=== PATIENT | male | born 1970 | race Caucasian/White ===

== ENCOUNTER 2016-07-04 08:08 | Emergency (ER) | payer BC, OTHER ==
[2016-07-04 08:42] VITALS: BP 133/89
[2016-07-04] MEDS ORDERED: Sodium Chloride 0.9% 10 ML Syringe FLUSH PRN (08:52)
--- NOTE | 2016-07-04 09:58 | EDM.PDOC ---
ED HPI GI/ABDOMINAL - General Chief Complaint: Abdominal Pain Stated Complaint: DIVERTICULITUS PER PATIENT Time Seen by Provider: 07/04/16 08:43 Source of Information: Reports: Patient, RN notes reviewed - History of Present Illness INITIAL COMMENTS - FREE TEXT/NARRATIVE: 46 year old male with onset of abd pain days ago, pain is worsening, primarily LLQ. Has not had any fever, chills, nausea, vomiting or diarrhea. Hx of diverticulitis, this seems very similar. Pain does not radiate to back, no blood. - Related Data Allergies/ADRs: Allergies Allergy/AdvReac Type Severity Reaction Status Date / Time thiopental [Thiopental] Allergy Unknown Nausea Verified 07/04/16 08:42 morphine Allergy unknown Verified 07/04/16 08:42 Home Meds: Home Meds Methylphenidate [Ritalin SR] 40 mg PO DAILY 10/29/13 [History] buPROPion [Wellbutrin XL] 300 mg PO DAILY 10/29/13 [History] Ciprofloxacin HCl [Cipro] 500 mg PO Q12HR #20 tablet 07/04/16 [Rx] atorvaSTATin [Lipitor] 20 mg PO DAILY 07/04/16 [History] metroNIDAZOLE [Flagyl] 500 mg PO Q8H #20 tablet 07/04/16 [Rx] Past Medical History Cardiovascular History: Reports: High cholesterol Gastrointestinal History: Reports: Diverticulosis Psychiatric History: Reports: ADHD, Anxiety, Depression - Past Surgical History HEENT Surgical History: Reports: Oral surgery GI Surgical History: Reports: Cholecystectomy Musculoskeletal Surgical History: Reports: Shoulder surgery Social & Family History - Tobacco Use Smoking Status *Q: Never Smoker - Caffeine Use Caffeine Use: Reports: Coffee - Alcohol Use Days Per Week of Alcohol Use: 3 Number of Drinks Per Day: 2 Total Drinks Per Week: 6 - Recreational Drug Use Recreational Drug Use: No ED ROS GENERAL - Review of Systems Review Of Systems: See Below Constitutional: Denies: fever, chills, diaphoresis HEENT: Reports: No symptoms Respiratory: Denies: Shortness of Breath, Pleuritic Chest Pain Cardiovascular: Denies: Chest pain GI/Abdominal: Reports: Abdominal pain. Denies: Diarrhea, Hematochezia, Melena, Nausea, Vomiting : Reports: no symptoms Musculoskeletal: Reports: no symptoms Skin: Reports: no symptoms Neurological: Reports: No Symptoms ED EXAM, GI/ABD - Physical Exam Exam: See Below General Appearance: alert, no apparent distress Eyes: bilateral: normal appearance Throat/Mouth: Normal inspection, Normal oropharynx Neck: supple, full range of motion Respiratory/Chest: no respiratory distress, lungs clear, normal breath sounds Cardiovascular: regular rate, rhythm GI/Abdominal: tenderness (LLQ, abd otherwise soft and nontender. ) Back Exam: No: CVA tenderness (L), CVA tenderness (R) Extremities: normal inspection, normal range of motion Neurological: alert, oriented, no motor/sensory deficits Skin Exam: Warm, Dry, Normal color Course - Vital Signs Last Recorded V/S: Last Vital Signs Temp 98.1 F 07/04/16 08:40 Pulse 66 07/04/16 08:40 Resp 16 07/04/16 08:40 BP 133/89 07/04/16 08:40 Pulse Ox 100 07/04/16 08:40 - Orders/Labs/Meds Orders: Active Orders 24 hr Category Date Time Status Peripheral IV Care [RC] . DIRECTED Care 07/04/16 08:52 Active Peripheral IV Insertion Adult [OM.PC] Stat Oth 07/04/16 08:52 Ordered Labs: Laboratory Tests 07/04/16 07/04/16 07/04/16 Range/Units 08:50 08:50 08:50 WBC 10.55 H (4.23-9.07) K/mm3 RBC 4.77 (4.63-6.08) M/mm3 Hgb 14.4 (13.7-17.5) gm/L Hct 42.9 (40.1-51.0) % MCV 89.9 (79.0-92.2) fl MCH 30.2 (25.7-32.2) pg MCHC 33.6 (32.2-35.5) g/dl RDW Std Deviation 44.0 H (35.1-43.9) fL Plt Count 250 (163-337) K/mm3 MPV 9.7 (9.4-12.3) fl Neut % (Auto) 63.1 (34.0-67.9) % Lymph % (Auto) 23.8 (21.8-53.1) % [place] % (Auto) 10.8 (5.3-12.2) % Eos % (Auto) 1.7 (0.8-7.0) Baso % (Auto) 0.3 (0.1-1.2) % Neut # (Auto) 6.66 H (1.78-5.38) K/mm3 Lymph # (Auto) 2.51 (1.32-3.57) K/mm3 [place] # (Auto) 1.14 H (0.30-0.82) K/mm3 Eos # (Auto) 0.18 (0.04-0.54) K/mm3 Baso # (Auto) 0.03 (0.01-0.08) K/mm3 Sodium 140 (136-145) mEq/L Potassium 3.8 (3.5-5.1) mEq/L Chloride 102 (98-107) mEq/L Carbon Dioxide 29 (21-32) mEq/L Anion Gap 12.8 (5-15) BUN 12 (7-18) mg/dL Creatinine 1.3 (0.7-1.3) mg/dL Est Cr Clr Drug Dosing 71.75 mL/min Estimated GFR (MDRD) 59 (>60) mL/min BUN/Creatinine Ratio 9.2 L (14-18) Glucose 113 H (74-106) mg/dL Calcium 8.9 (8.5-10.1) mg/dL Total Bilirubin 0.4 (0.2-1.0) mg/dL AST 21 (15-37) U/L ALT 46 (16-63) U/L Alkaline Phosphatase 66 (46-116) U/L C-Reactive Protein 0.6 (<1.0) mg/dL Total Protein 7.6 (6.4-8.2) g/dl Albumin 4.0 (3.4-5.0) g/dl Globulin 3.6 gm/dL Albumin/Globulin Ratio 1.1 (1-2) Meds: Medications Discontinued Medications Generic Name Dose Route Start Last Admin Trade Name Freq PRN Reason Stop Dose Admin Metronidazole 500 mg 07/04/16 09:59 07/04/16 10:11 Flagyl PO 07/04/16 10:00 500 mg ONETIME ONE Administration Sodium Chloride 10 ml 07/04/16 08:52 07/04/16 09:22 Saline Flush FLUSH 10 ml ASDIRECTED PRN Administration Keep Vein Open - Re-Assessments/Exams Free Text/Narrative Re-Assessment/Exam: 07/04/16 10:23 WBC mildly elevated, CRP 0.6, will start on cipro and flagyl. Departure - Departure Time of Disposition: 09:57 Disposition: Home, Self-Care 01 Condition: fair Clinical Impression: Diverticulitis Qualifiers: Diverticulitis site: large intestine Diverticulitis bleeding: without bleeding Diverticulitis complication: without perforation or abscess Qualified Code(s): K57.32 - Diverticulitis of large intestine without perforation or abscess without bleeding Prescriptions: Ciprofloxacin HCl [Cipro] 500 mg PO Q12HR #20 tablet metroNIDAZOLE [Flagyl] 500 mg PO Q8H #20 tablet Instructions: Diverticulitis Referrals: Hope Patel DO [Primary Care Provider] - Forms: ED Department Discharge Additional Instructions: clear liquids and bland diet as tolerated, cipro 500 mg twice daily for 10 days , flagyl 500 mg 3 times daily for 7 days, continue stool softener, drink plenty of water, follow up clinic if sx not resolving as expected, return to ED as needed. - My Orders Last 24 Hours: My Active Orders 07/04/16 08:52 Peripheral IV Care [RC] . DIRECTED Peripheral IV Insertion Adult [OM.PC] Stat - Assessment/Plan Last 24 Hours: My Active Orders 07/04/16 08:52 Peripheral IV Care [RC] . DIRECTED Peripheral IV Insertion Adult [OM.PC] Stat
[2016-07-04] MEDS ORDERED: metroNIDAZOLE 500 MG Tab PO ONE (09:59)
== END 2016-07-04 10:14 | disposition home or self-care (01) ==
LOC: JD.ED 08:08
DX: K57.32 Diverticulitis of large intestine without perforation or abscess without bleeding (principal); E78.00 Pure hypercholesterolemia, unspecified; F41.8 Other specified anxiety disorders; Z90.49 Acquired absence of other specified parts of digestive tract; Z98.890 Other specified postprocedural states; Z79.899 Other long term (current) drug therapy; Z88.5 Allergy status to narcotic agent; Z88.8 Allergy status to other drugs, medicaments and biological substances
CPT/HCPCS: 36415; 80053; 85025; 86140; 99284; A9270; J7050

== ENCOUNTER 2019-09-17 21:10 | Emergency (ER) | payer OTHER ==
[2019-09-17 21:54] VITALS: BP 133/82; PULSE 63
[2019-09-17] MEDS ORDERED: Sodium Chloride 0.9% 1,000 ML IV SCH (22:15)
--- NOTE | 2019-09-17 22:57 | EDM.PDOC ---
ED HPI GENERAL MEDICAL PROBLEM - General Chief Complaint: Abdominal Pain Stated Complaint: SIDE ABDOMINAL PAIN Time Seen by Provider: 09/17/19 22:56 - History of Present Illness INITIAL COMMENTS - FREE TEXT/NARRATIVE: 49-year-old male presents the emergency room with abdominal pain. This gentleman has a history of diverticulitis. And has had a couple of flares in the past. This episode is been going on over 24 hours now. And he is having worsening pain. The pain is purely on the left side mostly left lower quadrant. Patient has not noticed any blood in his stool he has no nausea or vomiting. Patient is not aware of any fevers or chills. The patient has had a colonoscopy in the past and recalls being told that his lesions are complicated. The patient is fairly certain this is diverticulitis. Left Abdomen Pain Score (Numeric/FACES): 7 - Related Data Allergies Allergy/AdvReac Type Severity Reaction Status Date / Time thiopental [Thiopental] Allergy Unknown Nausea Verified 09/17/19 21:24 morphine Allergy unknown Verified 09/17/19 21:24 Home Meds: Home Meds Methylphenidate [Ritalin SR] 40 mg PO DAILY 10/29/13 [History] buPROPion [Wellbutrin XL] 300 mg PO DAILY 10/29/13 [History] atorvaSTATin [Lipitor] 20 mg PO DAILY 07/04/16 [History] Acetaminophen/HYDROcodone [[place] 325-5 MG] 1 - 2 tab PO Q6H PRN #20 tablet 09/18/19 [Rx] Ciprofloxacin [Ciprofloxacin HCl] 500 mg PO Q12H #18 tab 09/18/19 [Rx] Ondansetron [Zofran ODT] 4 mg PO Q6H PRN #12 tab.dis 09/18/19 [Rx] metroNIDAZOLE [Flagyl] 500 mg PO Q8H #29 tab 09/18/19 [Rx] Past Medical History Cardiovascular History: Reports: High Cholesterol Gastrointestinal History: Reports: Diverticulosis Psychiatric History: Reports: ADHD, Anxiety, Depression - Past Surgical History HEENT Surgical History: Reports: Oral Surgery GI Surgical History: Reports: Cholecystectomy Musculoskeletal Surgical History: Reports: Shoulder Surgery Social & Family History - Tobacco Use Smoking Status *Q: Never Smoker Second Hand Smoke Exposure: No - Caffeine Use Caffeine Use: Reports: None - Recreational Drug Use Recreational Drug Use: No ED ROS GENERAL - Review of Systems Review Of Systems: See Below Constitutional: Reports: No Symptoms HEENT: Reports: No Symptoms Respiratory: Reports: No Symptoms Cardiovascular: Reports: No Symptoms GI/Abdominal: Reports: Abdominal Pain. Denies: Black Stool, Bloody Stool, Constipation, Diarrhea, Nausea, Vomiting ED EXAM, GI/ABD - Physical Exam Exam: See Below Exam Limited By: No Limitations General Appearance: Alert, No Apparent Distress Head: Atraumatic, Normocephalic Neck: Normal Inspection, Supple, Non-Tender, Full Range of Motion. No: Lymphadenopathy (L), Lymphadenopathy (R) Respiratory/Chest: No Respiratory Distress, Lungs Clear, Normal Breath Sounds Cardiovascular: Regular Rate, Rhythm, No Edema, No Murmur GI/Abdominal Exam: Normal Bowel Sounds, Soft, Other (She has significant left lower quadrant discomfort with palpation no rigidity rebound or guarding noted.) Back Exam: Normal Inspection. No: CVA Tenderness (L), CVA Tenderness (R) Neurological: Alert, Oriented, Normal Cognition Course - Vital Signs Last Recorded V/S: Last Vital Signs Temp 36.5 C 09/17/19 21:21 Pulse 63 09/17/19 21:21 Resp 18 09/17/19 21:21 BP 133/82 09/17/19 21:21 Pulse Ox 96 09/17/19 21:21 - Orders/Labs/Meds Orders: Active Orders 24 hr Category Date Time Status Abdomen Pelvis w Cont [CT] Stat Exams 09/17/19 22:19 Taken Sodium Chloride 0.9% [Normal Saline] 1,000 ml Med 09/17/19 22:15 Active IV ASDIRECTED Medication Orders Sodium Chloride (Normal Saline) 1,000 mls @ 150 mls/hr IV ASDIRECTED TANNER Last Admin: 09/18/19 00:03 Dose: 150 mls/hr Documented by: GABE Labs: Laboratory Tests 09/17/19 09/17/19 Range/Units 22:15 22:15 WBC 11.45 H (4.23-9.07) K/mm3 RBC 4.51 L (4.63-6.08) M/mm3 Hgb 13.5 L (13.7-17.5) gm/dl Hct 40.9 (40.1-51.0) % MCV 90.7 (79.0-92.2) fl MCH 29.9 (25.7-32.2) pg MCHC 33.0 (32.2-35.5) g/dl RDW Std Deviation 43.7 (35.1-43.9) fL Plt Count 219 (163-337) K/mm3 MPV 9.4 (9.4-12.3) fl Neut % (Auto) 64.0 (34.0-67.9) % Lymph % (Auto) 20.9 L (21.8-53.1) % [place] % (Auto) 12.9 H (5.3-12.2) % Eos % (Auto) 1.6 (0.8-7.0) Baso % (Auto) 0.3 (0.1-1.2) % Neut # (Auto) 7.33 H (1.78-5.38) K/mm3 Lymph # (Auto) 2.39 (1.32-3.57) K/mm3 [place] # (Auto) 1.48 H (0.30-0.82) K/mm3 Eos # (Auto) 0.18 (0.04-0.54) K/mm3 Baso # (Auto) 0.03 (0.01-0.08) K/mm3 Sodium 141 (136-145) mEq/L Potassium 3.9 (3.5-5.1) mEq/L Chloride 103 (98-107) mEq/L Carbon Dioxide 27 (21-32) mEq/L Anion Gap 14.9 (5-15) BUN 14 (7-18) mg/dL Creatinine 1.2 (0.7-1.3) mg/dL Est Cr Clr Drug Dosing 77.57 mL/min Estimated GFR (MDRD) > 60 (>60) mL/min BUN/Creatinine Ratio 11.7 L (14-18) Glucose 96 (74-106) mg/dL Calcium 9.4 (8.5-10.1) mg/dL Total Bilirubin 0.6 (0.2-1.0) mg/dL AST 29 (15-37) U/L ALT 61 (16-63) U/L Alkaline Phosphatase 74 (46-116) U/L C-Reactive Protein 0.5 (<1.0) mg/dL Total Protein 7.5 (6.4-8.2) g/dl Albumin 4.0 (3.4-5.0) g/dl Globulin 3.5 gm/dL Albumin/Globulin Ratio 1.1 (1-2) Meds: Medications Generic Name Dose Route Start Last Admin Trade Name Ricardo PRN Reason Stop Dose Admin Sodium Chloride 1,000 mls @ 150 mls/hr 09/17/19 22:15 09/18/19 00:03 Normal Saline IV 150 mls/hr ASDIRECTED TANNER Administration Discontinued Medications Generic Name Dose Route Start Last Admin Trade Name Ricardo PRN Reason Stop Dose Admin Hydrocodone Bitart/Acetaminophen 2 tab 09/18/19 02:36 [place] 325-5 Mg PO 09/18/19 02:37 ONETIME ONE Fentanyl 100 mcg 09/17/19 23:14 09/17/19 23:25 Sublimaze IVPUSH 09/17/19 23:15 100 mcg ONETIME ONE Administration Fentanyl 100 mcg 09/18/19 01:48 09/18/19 01:56 Sublimaze IVPUSH 09/18/19 01:49 100 mcg ONETIME ONE Administration Sodium Chloride 500 mls @ 999 mls/hr 09/17/19 23:07 09/17/19 23:25 Normal Saline IV 09/17/19 23:37 999 mls/hr .BOLUS ONE Administration Levofloxacin/Dextrose 750 mg/ 150 mls @ 100 mls/hr 09/18/19 02:35 09/18/19 02:42 Premix IV 09/18/19 04:04 100 mls/hr ONETIME ONE Administration Metronidazole 500 mg/ Premix 100 mls @ 100 mls/hr 09/18/19 02:35 09/18/19 02:42 IV 09/18/19 03:34 100 mls/hr ONETIME ONE Administration Ondansetron HCl 4 mg 09/17/19 23:38 09/17/19 23:00 Zofran IVPUSH 09/17/19 23:39 4 mg ONETIME ONE Administration - Re-Assessments/Exams Free Text/Narrative Re-Assessment/Exam: 09/18/19 02:39 CT is consistent with diverticulitis without mention of abscess. He recently received some more fentanyl and another 20 or 30 minutes will give him a couple hydrocodone. Patient has done okay with hydrocodone in the past however causes constipation for him did discuss this with the patient he will use a stool softener and MiraLAX as an outpatient the patient will receive a single dose of IV Levaquin and Flagyl prior to discharge Departure - Departure Time of Disposition: 03:15 Disposition: Home, Self-Care 01 Clinical Impression: Diverticulitis Qualifiers: Diverticulitis site: large intestine Diverticulitis bleeding: without bleeding Diverticulitis complication: without perforation or abscess Qualified Code(s): K57.32 - Diverticulitis of large intestine without perforation or abscess without bleeding - Discharge Information Prescriptions: Ciprofloxacin [Ciprofloxacin HCl] 500 mg PO Q12H #18 tab metroNIDAZOLE [Flagyl] 500 mg PO Q8H #29 tab Acetaminophen/HYDROcodone [[place] 325-5 MG] 1 - 2 tab PO Q6H PRN #20 tablet PRN Reason: Abdominal Pain Ondansetron [Zofran ODT] 4 mg PO Q6H PRN #12 tab.dis PRN Reason: Nausea/Vomiting Referrals: Meena Ellison MD [Primary Care Provider] - Forms: ED Department Discharge Additional Instructions: Return to the emergency room with any questions problems or worsening symptoms. Take the antibiotics as directed. You start the ciprofloxacin on September 18 and you will continue the metronidazole, or Flagyl today your next dose is due around noon. Follow-up with your regular physician at the end of this week for recheck. Take Colace 100 mg twice a day, this is an [id number] stool softener use MiraLAX as well. Sepsis Event Note (ED) - Evaluation Sepsis Screening Result: No Definite Risk - Focused Exam Vital Signs: Vital Signs Temp Pulse Resp BP Pulse Ox 09/17/19 21:21 36.5 C 63 18 133/82 96 - My Orders Last 24 Hours: My Active Orders 09/17/19 22:15 Sodium Chloride 0.9% [Normal Saline] 1,000 ml IV ASDIRECTED - Assessment/Plan Last 24 Hours: My Active Orders 09/17/19 22:15 Sodium Chloride 0.9% [Normal Saline] 1,000 ml IV ASDIRECTED
[2019-09-17] MEDS ORDERED: Sodium Chloride 0.9% 500 ML IV ONE (23:07)
[2019-09-17] MEDS ORDERED: fentaNYL 100 MCG/2 ML SDV IVPUSH ONE (23:14)
[2019-09-17] MEDS ORDERED: Ondansetron 4 MG/2 ML SDV IVPUSH ONE (23:38)
[2019-09-18] MEDS ORDERED: fentaNYL 100 MCG/2 ML SDV IVPUSH ONE (01:48)
[2019-09-18] MEDS ORDERED: metroNIDAZOLE/Normal Saline 500 MG in Premix Bag 1 BAG IV ONE (02:35)
[2019-09-18] MEDS ORDERED: Levofloxacin/Dextrose 5%-Water 750 MG in Premix Bag 1 BAG IV ONE (02:35)
[2019-09-18] MEDS ORDERED: Acetaminophen/HYDROcodone 325-5 MG Tab PO ONE (02:36)
--- NOTE | 2019-09-18 06:40 | CT ---
CT abdomen and pelvis Technique: Multiple axial sections were obtained from above the dome of the diaphragm inferiorly through the pubic symphysis. Intravenous and oral contrast was utilized. Delayed images were also obtained through the pelvis. Comparison: Prior CT abdomen and pelvis exam of 07/31/18. Findings: Inflammatory change and adjacent bowel wall thickening seen at the junction of the descending and sigmoid colon. This occurs in an area of diverticuli and findings are most likely due to diverticulitis. Appendix is seen and is normal in size. Visualized lung bases show mild atelectasis. Liver contains fatty infiltration without focal abnormality. Spleen appears normal. Adrenal glands show no nodule. Kidneys show symmetric contrast enhancement without hydronephrosis or mass. Surgical clips are noted from prior cholecystectomy. Pancreas shows no abnormality. Aorta shows no aneurysm. No retroperitoneal adenopathy or mesenteric abnormalities are seen. No pelvic mass or adenopathy is seen. Delayed images shows contrast within the distal ureters as well as bladder. Bone window settings were reviewed which shows disc space narrowing and vacuum phenomena at L5-S1. Lesser degenerative change scattered within other portions of the spine. No acute osseous finding is appreciated. Impression: 1. Findings compatible with diverticulitis as noted above. 2. No other acute finding is seen. Diagnostic code #3 This report was dictated in MDT I agree with preliminary report from [facility], finalized on 09/18/19, 2:57 AM Central Daylight Time
== END 2019-09-18 04:50 | disposition home or self-care (01) ==
LOC: JD.ED 21:10
DX: K57.32 Diverticulitis of large intestine without perforation or abscess without bleeding (principal); E78.00 Pure hypercholesterolemia, unspecified; F41.9 Anxiety disorder, unspecified; F32.9 Major depressive disorder, single episode, unspecified; Z88.5 Allergy status to narcotic agent; Z88.4 Allergy status to anesthetic agent; Z79.899 Other long term (current) drug therapy; F90.9 Attention-deficit hyperactivity disorder, unspecified type
CPT/HCPCS: 36415; 74177; 80053; 85025; 86140; 96365; 96368; 96375; 96376; 99284; A9270; J1956; J2405; J3010; J3490; J7030

== ENCOUNTER 2023-01-06 20:40 | Emergency (ER) | payer BC, OTHER ==
[2023-01-06] MEDS ORDERED: Sodium Chloride 0.9% 10 ML Syringe FLUSH PRN (20:57)
[2023-01-06 21:34] VITALS: PULSE 65
[2023-01-06 21:35] LABS: BASOPHILS ABSOLUTE AUTO 0.1 K/mm3 (0.0-0.2); BASOPHILS PERCENT AUTO 0.7 % (0.0-1.0); EOSINOPHILS ABSOLUTE AUTO 0.2 K/mm3 (0.0-0.4); EOSINOPHILS PERCENT AUTO 2.5 % (0.0-6.0); HEMATOCRIT 46.3 % (42.0-52.0); HEMOGLOBIN 15.5 gm/dl (14.0-18.0); IMMATURE GRAN ABSOLUTE AUTO 0.14 K/mm3 (0.00-0.05); IMMATURE GRAN PERCENT AUTO 1.5 % (0.0-0.4); LYMPHOCYTES ABSOLUTE AUTO 2.6 K/mm3 (1.0-4.8); LYMPHOCYTES PERCENT AUTO 27.7 % (24.0-44.0); MEAN CORPUSCULAR HGB CONC 33.5 g/dl (32.0-36.0); MEAN CORPUSCULAR VOLUME 89.6 fl (83.0-99.0); MEAN PLATELET VOLUME 9.3 fl (9.4-12.4); MONOCYTES PERCENT AUTO 10.7 % (0.0-8.0); NEUTROPHILS ABSOLUTE AUTO 5.3 K/mm3 (1.8-7.7); NEUTROPHILS PERCENT AUTO 56.9 % (41.0-71.0); PLATELET COUNT,PLT 267 K/mm3 (150-400); RED BLOOD CELL COUNT 5.17 M/mm3 (4.52-5.90); WHITE BLOOD CELL COUNT,WBC 9.38 K/mm3 (3.9-11.3)
[2023-01-06 22:02] LABS: A/G RATIO 1.1 (1-2); ANION GAP 16.5 (5-15); BILIRUBIN TOTAL 0.3 mg/dL (0.2-1.0); BUN/CREATININE RATIO 9.1 (14-18); CALCIUM 9.1 mg/dL (8.5-10.1); CREATININE 1.1 mg/dL (0.7-1.3); EST CRCL DRUG DOSING (CG) 79.27 mL/min; MAGNESIUM 2.2 mg/dL (1.8-2.4); PROTEIN TOTAL,TP 7.7 g/dl (6.4-8.2)
[2023-01-06 22:04] LABS: POTASSIUM,K 3.5 mEq/L (3.5-5.1)
[2023-01-06 22:11] LABS: PROTHROMBIN TIME 10.7 SECONDS (9.7-12.0)
[2023-01-06 22:13] LABS: PTT,PARTIAL THROMBOPLSTIN TIME 28.5 SECONDS (21.7-31.4)
[2023-01-06 22:21] VITALS: BP 135/75
== END 2023-01-06 22:48 | disposition home or self-care (01) ==
LOC: JD.ED 20:40
DX: R07.89 Other chest pain (principal); E78.00 Pure hypercholesterolemia, unspecified; Z79.899 Other long term (current) drug therapy; Z88.8 Allergy status to other drugs, medicaments and biological substances; Z88.5 Allergy status to narcotic agent
CPT/HCPCS: 36415; 71045; 71045-26; 80053; 83735; 83880; 84484; 85025; 85610; 85730; 93005; 99284

== ENCOUNTER 2023-10-31 09:37 | Emergency (ER) | payer OTHER ==
[2023-10-31 09:52] VITALS: BP 147/85; PULSE 63
[2023-10-31] MEDS: LORazepam 2 MG/ML SDV IM ONE (10:49)
[2023-10-31] MEDS: Ketorolac 60 MG/2 ML SDV IM ONE (10:50)
== END 2023-10-31 12:07 | disposition home or self-care (01) ==
LOC: JD.ED 09:37
DX: M62.830 Muscle spasm of back (principal); J45.909 Unspecified asthma, uncomplicated; E78.00 Pure hypercholesterolemia, unspecified; Z86.16 Personal history of COVID-19; Z79.899 Other long term (current) drug therapy; Z88.8 Allergy status to other drugs, medicaments and biological substances; Z88.5 Allergy status to narcotic agent; Z91.048 Other nonmedicinal substance allergy status
CPT/HCPCS: 96372; 99283; J1885; J2060